=== PATIENT | male | born 1975 | race Caucasian/White ===

== ENCOUNTER 2021-10-23 12:03 | Emergency (ER) | payer OTHER, SELFPAY ==
--- NOTE | ~2021-10-23 | XR_ITS ---
EXAMINATION: XR chest 2V DATE: 10/23/2021 12:51 INDICATION: Cough TECHNIQUE: PA and lateral views of the chest were obtained. COMPARISON: None FINDINGS: The lungs are clear with no focal airspace opacities, pulmonary edema, pleural effusion or pneumothor ax. The cardiomediastinal silhouette is normal. Post cystectomy clips in right upper quadrant. Mild t horacic spondylosis. IMPRESSION: 1. No acute cardiopulmonary disease. Reviewed, dictated and finalized at location A.
[2021-10-23 12:06] VITALS: BP 121/67; PULSE 92; RESP 16; TEMP 37.1; O2SAT 99
[2021-10-23 12:20] LABS: Basophils Absolute Auto 0.1 K/mm3 (0.0-0.1); Basophils Percent Auto 0.8 % (0.2-1.2); Eosinophils Absolute Auto 0.5 K/mm3 (0-0.3); Eosinophils Percent Auto 5.2 % (0-4.4); Hematocrit 46.1 % (42.0-52.0); Hemoglobin 15.6 g/dL (14.0-18.0); Immature Granulocyte Absolute 0.03 K/mm3 (0.00-0.031); Immature Granulocyte Percent A 0.3 % (0-0.5); Lymphocytes Absolute Auto 2.97 K/mm3 (0.9-3.2); Lymphocytes Percent Auto 33.4 % (18.3-44.2); Mean Corpuscular HGB Conc 33.8 g/dl (32-36); Mean Corpuscular Hemoglobin 32.2 pg (26-34); Mean Corpuscular Volume 95.2 fl (80-100); Monocytes Absolute Auto 0.8 K/mm3 (0.1-0.6); Monocytes Percent Auto 8.7 % (2.6-8.5); Neutrophils Absolute Auto 4.6 K/mm3 (1.3-6.7); Neutrophils Percent Auto 51.6 % (45.5-73.1); Platelet Count Result 222 k/mm3 (150-375); Red Blood Count 4.84 M/mm3 (4.6-6.20); White Blood Count 8.9 K/mm3 (4.5-10.0)
[2021-10-23 12:36] LABS: Alanine Aminotransferase 57 U/L (6-50); Albumin Level 4.7 g/dL (3.5-5.1); Alkaline Phosphatase 74 U/L (38-126); Anion Gap 10 mmol/L (8-16); Aspartate Amino Transferase 51 U/L (17-59); Bilirubin,Total 0.9 mg/dL (0.2-1.3); Blood Urea Nitrogen 14 mg/dL (9-20); Calcium 9.2 mg/dL (8.4-10.2); Carbon Dioxide 29 mmol/L (22-30); Chloride 96 mmol/L (98-107); Estimated CRCL calculation 124 ml/min; Estimated Glomerular Filt Rate > 60; Glucose 184 mg/dL (65-110); Potassium 4.2 mmol/L (3.4-5.0); Sodium 135 mmol/L (137-145)
[2021-10-23 13:09] LABS: SARS-CoV-2 RNA PCR Negative
== END 2021-10-23 13:54 | disposition left against medical advice (07) ==
LOC: ANHED 13:53
PROVIDERS: Emergency Provider Emergency Medicine
DX: R05.9 Cough, unspecified (principal); Z20.822 Contact with and (suspected) exposure to COVID-19
CPT/HCPCS: 36415; 71046; 80053; 85025; 99199; C9803; U0003; U0005

== ENCOUNTER 2023-04-25 13:32 | Outpatient (CLI) | payer OTHER, SELFPAY ==
--- NOTE | ~2023-04-25 | MR_ITS ---
MRI of the lumbar spine Clinical History: Degenerative disc disease Technique: Axial T2-weighted images, and sagittal T1-weighted, T2-weighted, and T2 fat-sat images wer e acquired. Findings: There is no fracture. There is 3 mm retrolisthesis of L2 over L3. No suspicious bone marrow signal abnormality seen. At L1-L2, there is advanced degenerative disc disease. There is minimal disc bulge and mild facet art hropathy. No central canal stenosis or definite neural foraminal narrowing. At L2-L3, there is moderate degenerative disc narrowing, with minimal disc bulge. There is minimal fa cet arthropathy. No central canal stenosis. There is minimal bilateral neural foraminal narrowing. At L3-L4, there is moderate degenerative disc narrowing. Disc bulge and facet arthropathy are present . No srinivas central canal stenosis. There is moderate right neural foraminal narrowing, and mild left neural foraminal narrowing. At L4-L5, there is advanced degenerative disc narrowing. There is central disc protrusion superimpose d upon mild disc bulge. There is mild facet arthropathy. No central canal stenosis. There is severe r ight neural foraminal narrowing. Left neural foramen preserved. At L5-S1, there is minimal disc bulge with mild facet arthropathy. No central canal stenosis. There i s advanced left neural foraminal narrowing. Right neural foramen preserved. Paravertebral soft tissues are unremarkable. Impression: Mild to moderate degenerative spondylosis, as above. Reviewed, dictated and finalized at [facility]. [place] [employer] Impression: Mild to moderate degenerative spondylosis, as above.
== END 2023-04-25 13:33 ==
LOC: MICIMG 13:35
PROVIDERS: PCP Family Medicine; Visit Provider Family Medicine
DX: M51.36 Other intervertebral disc degeneration, lumbar region (principal); M43.06 Spondylolysis, lumbar region
CPT/HCPCS: 72148